=== PATIENT | female | born 1985 | race Caucasian/White ===

== ENCOUNTER 2018-08-29 09:09 | Day surgery (SDC) | payer OTHER ==
[2018-08-29] MEDS ORDERED: LR 1,000 ML IV ONE (09:21)
[2018-08-29] MEDS ORDERED: MIDAZOLAM 2 MG/2 ML VIAL IVP ONE (11:01)
--- NOTE | 2018-08-29 11:01 | PDANEPAE ---
ANE History of Present Illness Here for tonsillectomy to improve day time sleepiness ANE Past Medical History - Cardiovascular History Hx Hypertension: No Hx Arrhythmias: No Hx Chest Pain: No Hx Coronary Artery / Peripheral Vascular Disease: No Hx CHF / Valvular Disease: No Hx Palpitations: No Cardiovascular History Comment: SL TACHYCARDIA IN [place] - Pulmonary History Hx COPD: No Hx Asthma/Reactive Airway Disease: No Hx Recent Upper Respiratory Infection: No Hx Oxygen in Use at Home: No Hx Sleep Apnea: Yes Sleep Apnea Screening Result - Last Documented: Positive - Neurologic History Hx Cerebrovascular Accident: No Hx Seizures: No Hx Dementia: No Neurologic History Comment: OCULAR MIGRAINES - Endocrine History Hx Diabetes: No - Renal History Hx Renal Disorders: No - Liver History Hx Hepatic Disorders: No - Neurological & Psychiatric Hx Hx Neurological and Psychiatric Disorders: No Neurological / Psychiatric History Comment: NARCOLEPSY - Cancer History Hx Cancer: No - Congenital Disorder History Hx Congenital Disorders: No - GI History Hx Gastrointestinal Disorders: No Gastrointestinal History Comment: IBS/CONSTIPATION - Other Health History Other Health History: MICHAEL DANLOS SYNDROME - Chronic Pain History Chronic Pain: Yes (JOINTS & BACK) - Surgical History Prior Surgeries: HIP L LABRAL REPAIR ANE Review of Systems Review of Systems: - Exercise capacity METS (RN): 4 METS ANE Patient History - Allergies Allergies/Adverse Reactions: carisoprodol [From Soma] Allergy (Verified 08/25/18 12:49) FLU-LIKE SXS & VOMITING egg [eggs] Allergy (Verified 01/01/16 11:12) NSAIDS (Non-Steroidal Anti-Inflamma Allergy (Verified 08/19/18 11:19) Other-Enter Comments tramadol Allergy (Verified 08/25/18 12:49) FLU-LIKE SXS & VOMITING - Home Medications Home Medications: Acetaminophen/Codeine 300/30Mg [Tylenol #3 (*)] 1 each PO Q6 PRN 02/15/15 [Last Taken 1 Month Ago ~07/29/18] Armodafinil 200 mg PO DAILY 08/19/18 [Last Taken 1 Week Ago ~08/22/18] DULoxetine [Cymbalta 20 MG (RX)] 20 mg PO BID 08/19/18 [Last Taken 08/28/18] methYLPHENIDATE HCL [Ritalin 10mg (*)] 10 mg PO DAILY PRN 08/19/18 [Last Taken 08/28/18] - NPO status NPO Since - Liquids (Date): 08/28/18 NPO Since - Liquids (Time): 19:00 NPO Since - Solids (Date): 08/28/18 NPO Since - Solids (Time): 19:00 - Smoking Hx Smoking Status: Never smoked - Family Anes Hx Family Hx Anesthesia Complications: NEG ANE Labs/Vital Signs - Vital Signs Blood Pressure: 114/78 Heart Rate: 93 Respiratory Rate: 18 O2 Sat (%): 96 Height: 167.64 cm Weight: 92.986 kg ANE Physical Exam - Airway Neck exam: FROM Mallampati Score: Class 1 Mouth exam: normal dental/mouth exam - Pulmonary Pulmonary: no respiratory distress, no rales or rhonchi - Cardiovascular Cardiovascular: regular rate and rhythym - ASA Status ASA Status: III ANE Anesthesia Plan Anesthesia Plan: general endotracheal anesthesia Total IV Anesthesia: No
[2018-08-29] MEDS ORDERED: LIDOCAINE HCL 160 MG/4 ML LTA KIT TP ONE (12:04)
[2018-08-29] MEDS ORDERED: fentaNYL 250 MCG/5 ML INJ ONE (12:04)
[2018-08-29] MEDS ORDERED: LIDOCAINE 2% 5 ML SDV ONE (12:04)
[2018-08-29] MEDS ORDERED: ONDANSETRON 4 MG/2 ML VIAL ONE (12:04)
[2018-08-29] MEDS ORDERED: DEXAMETHASONE 4 MG/ML VIAL ONE (12:04)
[2018-08-29] MEDS ORDERED: ROCURONIUM 100 MG/10 ML VIAL ONE (12:04)
[2018-08-29] MEDS ORDERED: PROPOFOL 200 MG/20 ML VIAL ONE (12:04)
--- NOTE | 2018-08-29 12:28 | PDHPUP ---
History & Physical Update H&P update statement: This history and physical update is based on an assessment of the patient which was completed after admission or registration (within 24 hours), but prior to the surgery/procedure. H&P update: no change in patient's condition since H&P completed
[2018-08-29] MEDS ORDERED: fentaNYL 100 MCG/2 ML INJ ONE (13:05)
[2018-08-29] MEDS ORDERED: oxyCODONE IR 5 MG TAB PO PRN (13:36)
[2018-08-29] MEDS ORDERED: fentaNYL 100 MCG/2 ML INJ IVP PRN (13:36)
[2018-08-29] MEDS ORDERED: NALOXONE HCL 0.4 MG/ML INJ IVP PRN ×2 (13:36→14:46)
[2018-08-29] MEDS ORDERED: HYDROmorphONE/DILAUDID 2 MG/ML INJ IVP PRN (13:36)
[2018-08-29] MEDS ORDERED: ACETAMINOPHEN 500 MG TAB PO PRN (13:36)
[2018-08-29] MEDS ORDERED: MEPERIDINE 25 MG/0.5 ML AMP IVP PRN (13:36)
[2018-08-29] MEDS ORDERED: PROMETHAZINE HCL 25 MG/ML INJ IVP PRN (13:36)
[2018-08-29] MEDS ORDERED: LR 500 ML IV PRN (13:36)
--- NOTE | 2018-08-29 13:49 | POSTANESTH ---
Post Anesthetic Evaluation Cardiovascular Status: Normal, Stable Respiratory Status: Normal, Stable Level of Consciousness/Mental Status: Can Participate in Eval Pain Control: Adequate, Prn Tx Ordered Nausea/Vomiting Control: Adequate, Prn Tx Ordered Complications Possibly Related to Anesthesia: None Noted
--- NOTE | 2018-08-29 14:37 | GOP ---
DATE OF OPERATION: 08/29/2018 SURGEON: Nguyen Villareal MD ANESTHESIA: General. PREOPERATIVE DIAGNOSIS: 1. Obstructive sleep apnea. 2. Tonsillar enlargement with collapse on exam. POSTOPERATIVE DIAGNOSIS: 1. Obstructive sleep apnea. 2. Tonsillar enlargement with collapse on exam. PROCEDURE PERFORMED: Bilateral tonsillectomy over 12. FINDINGS: The patient was found to have tonsils that were 2+ with a narrow oropharynx. She had no a denoid tissue. ESTIMATED BLOOD LOSS: Minimal. INDICATIONS: This patient is a 33-year-old woman who has a history of mild sleep apnea on PSG and wa s sent to me for possible evaluation of anatomical contributions. She was noted to have not overly e nlarged tonsils, but on scope exam with the Marcus maneuver, she did collapse significantly at the o ropharyngeal level at the tonsil area and so it was felt that a tonsillectomy would be beneficial. S he does have a slight retrognathia, and so we discussed that she may still need something else like a mandibular advancement device in the future if she continues to have some sleep apnea. DESCRIPTION OF PROCEDURE: Patient was first seen in the preoperative area where informed consent was obtained. She was then brought back to the operating room where Anesthesia sedated and intubated he r. The bed was turned 90 degrees. A shoulder roll was placed. She was prepped and draped in a norm al fashion. A universal time-out protocol was performed and confirmed. Once this was done, a Jolie- Pavel mouth gag was placed in the oral cavity and then retracted and suspended, giving good visualiza tion of the oropharynx. The right tonsil was grasped with a curved Allis clamp and then electrocaute ry on a low to intermediate setting was used to remove the tonsil as a whole, taking care to stay med ial to the musculature. Any small bleeding vessels were cauterized using bipolar cautery. I then tu rned my attention to the left side, did the exact same thing. The tonsil was removed, and throughout this procedure, the Jolie-Pavel mouth gag was unretracted and unsuspended to release any tension on the tongue. This was resuspended, and then, the adenoid bed was evaluated. There was no significant adenoid tissue so adenoidectomy was not done. After resuspension, I visualized the tonsillar fossa completely without any active bleeding. So, all instruments were removed. The patient was turned ba ck over to Anesthesia where she was awakened, extubated, and taken to PACU in stable condition. Ther e were no complications, and she tolerated the procedure well. COMPLICATIONS: None. /[id number]/MODL
[2018-08-29] MEDS ORDERED: oxyCODONE IR 5 MG TAB ONE (15:08)
[2018-08-29 17:06] VITALS: BP 127/79
== END 2018-08-29 17:29 | disposition home or self-care (01) ==
LOC: F3E 09:09 → FSGY 09:09 → UNDOADMOB 09:09 → EDSTATUS 09:30 → UNDODISOB 17:29 → FSGY 17:29
PROVIDERS: ATTEND Otolaryngology
PROC: 0CTPXZZ Resection of Tonsils, External Approach (ICD-10-PCS; principal; 2018-08-29 11:00)
DX: G47.33 Obstructive sleep apnea (adult) (pediatric) (principal); J35.1 Hypertrophy of tonsils; J35.01 Chronic tonsillitis; J35.8 Other chronic diseases of tonsils and adenoids; Q79.6 Ehlers-Danlos syndromes
CPT/HCPCS: J1100; J2250; J2405; J2704; J3010